=== PATIENT | female | born 1965 | race Caucasian/White ===

== ENCOUNTER → 2017-06-10 | Outpatient (CLI) | payer OTHER ==
--- NOTE | 2017-06-10 14:01 | WOMENS IMAGING REPORT ---
EXAM DESCRIPTION: BILAT SCREENING MAMMO W/CAD COMPLETED DATE/TIME: 06/10/2017 11:39 am REASON FOR STUDY: ROUTINE SCREENING; Z12.31 Z12.31 ENCNTR SCREEN MAMMOGRAM FOR MALIGNANT NEOPLASM O F ERNESTINA COMPARISON: 2013, 2015 TECHNIQUE: Standard craniocaudal and mediolateral oblique views of each breast recorded using Spreecasta l acquisition. LIMITATIONS: None. FINDINGS: RIGHT BREAST MASSES: No suspicious masses. CALCIFICATIONS: No new or suspicious calcifications. ARCHITECTURAL DISTORTION: None. DEVELOPING DENSITY: 6 mm developing density seen on the MLO view upper breast 9 cm from the nipple, l ikely a lymph node ASYMMETRY: None noted. OTHER: No other significant findings. LEFT BREAST MASSES: No suspicious masses. CALCIFICATIONS: No new or suspicious calcifications. ARCHITECTURAL DISTORTION: None. DEVELOPING DENSITY: None. ASYMMETRY: None noted. OTHER: No other significant findings. Read with the assistance of CAD. .[facility] - R2 Cenova Version 1.3 .[facility] Imaging - R2 Cenova Version 1.3 .[facility] Imaging - R2 Cenova Version 2.4 .[facility] - R2 Cenova Version 2.4 .[facility] - R2 [employer] Version 9.2 IMPRESSION: Developing density in the right breast BREAST DENSITY: b. There are scattered areas of fibroglandular density. BIRAD: 0 Incomplete: Needs Additional Imaging Evaluation and/or prior Mammograms for Comparison. RECOMMENDATION: RECOMMENDED FOLLOW-UP: Magnification spot compression and ultrasound. The patient will be contacted for additional imaging. COMMENT: The patient has been notified of the results by letter per SA requirements. Additional no tification policies are in place for contacting patient with suspicious or incomplete findings. Quality ID #225: The [employer] [place] [employer] [employer] recommends an annual screening mammogram for women aged 40 years or over. This facility utilizes a reminder system to ensure that all patients receive reminder letters, and/or direct phone calls for appointments. This includes reminders for routine scr eening mammograms, diagnostic mammograms, or other Breast Imaging Interventions when appropriate. Th is patient will be placed in the appropriate reminder system. The [employer] [place] [employer] (ACR) has developed recommendations for screening MRI of the breast s in certain patient populations, to be used in conjunction with mammography. Breast MRI surveillanc e may be appropriate for women with more than 20% lifetime risk of developing breast cancer as deter mined by genetic testing, significant family history of the disease, or history of mantle radiation f or Hodgkins Disease. ACR Practice Guidelines 2008. TECHNICAL DOCUMENTATION: FINDING NUMBER: (1) ASSESSMENT: (1) JOB ID: [id number] [employer]- All Rights Reserved
== END ==
LOC: WI 08:12
PROVIDERS: ATTEND Physician Assistant
DX: Z12.31 Encounter for screening mammogram for malignant neoplasm of breast (principal)
CPT/HCPCS: 77067; G0202

== ENCOUNTER → 2017-07-01 | Outpatient (CLI) | payer OTHER ==
--- NOTE | 2017-07-01 16:30 | WOMENS IMAGING REPORT ---
EXAM DESCRIPTION: RIGHT DIAGNOSTIC MAMMO W/CAD; U/S BREAST UNILAT LIMITED COMPLETED DATE/TIME: 07/01/2017 11:02 am; 07/01/2017 12:34 pm REASON FOR STUDY: R DIAG; LUMP N63; RT BREAST DENSITY N63 UNSPECIFIED LUMP IN BREAST COMPARISON: 06/10/2017 and 01/26/2016. TECHNIQUE: Additional images include a true lateral view, exaggerated CCL view, and spot compression MLO view. LIMITATIONS: None. FINDINGS: BREAST: right MASSES: Circumscribed mass in the axillary tail region. This has smooth borders and fatty hilum. CALCIFICATIONS: No new or suspicious calcifications. ARCHITECTURAL DISTORTION: None. DEVELOPING DENSITY: None. ASYMMETRY: None noted. OTHER: No other significant findings. BREAST ULTRASOUND: TECHNIQUE: Static and dynamic grayscale images acquired of the right breast in the specific areas of clinical/mammographic concern. Selected color Doppler images recorded. ELASTOGRAPHY PERFORMED: No. LIMITATIONS: None. FINDINGS: MASS: Circumscribed oval lymph node in the axillary tail measuring 6 x 7 x 10 mm. This has smooth ma rgins with central fatty hilum. No suspicious cortical thickening. Normal glandular tissue. ELASTOGRAPHY CHARACTERISTICS: Not applicable. OTHER: No other significant finding. IMPRESSION: Small mass in the axillary tail region of the right breast has characteristics of an inc idental lymph node. No worrisome findings. BREAST DENSITY: b. There are scattered areas of fibroglandular density. BIRAD: 2 Benign findings. RECOMMENDATION: RECOMMENDED FOLLOW UP: Birads 1 or 2: The patient should resume routine screening . SPECIFIC INTERVENTION/IMAGING/CONSULTATION RECOMMENDED:No additional intervention/ imaging/consultati on needed at this time. COMMUNICATION:The imaging findings were not discussed with the patient. Her referring provider has be en notified of the findings. COMMENT: The patient has been notified of the results by letter per SA requirements. Additional no tification policies are in place for contacting patient with suspicious or incomplete findings. Quality ID #225: The [employer] recommends an annual screening mammogram for women aged 40 years or over. This facility utilizes a reminder system to ensure that all patients receive reminder letters, and/or direct phone calls for appointments. This includes reminders for routine scr eening mammograms, diagnostic mammograms, or other Breast Imaging Interventions when appropriate. Th is patient will be placed in the appropriate reminder system. The [employer] [employer] (ACR) has developed recommendations for screening MRI of the breast s in certain patient populations, to be used in conjunction with mammography. Breast MRI surveillanc e may be appropriate for women with more than 20% lifetime risk of developing breast cancer as deter mined by genetic testing, significant family history of the disease, or history of mantle radiation f or Hodgkins Disease. ACR Practice Guidelines 2008. TECHNICAL DOCUMENTATION: FINDING NUMBER: (1) ASSESSMENT: (1) JOB ID: [id number] [employer]- All Rights Reserved
== END ==
LOC: WI 10:46
PROVIDERS: ATTEND Physician Assistant
DX: N63 Unspecified lump in breast (principal)
CPT/HCPCS: 76642; G0206

== ENCOUNTER 2019-06-11 12:28 | Emergency (ER) | payer MEDICARE, OTHER ==
[2019-06-11 12:53] VITALS: BP 118/42
--- NOTE | 2019-06-11 13:45 | ER Document Report ---
ED Medical Screen (RME) - General Chief Complaint: Fall Stated Complaint: FALL/ARM PAIN Time Seen by Provider: 06/11/19 13:41 Primary Care Provider: GIANCARLO SAENZ PA-C [Primary Care Provider] - Follow up as needed Mode of Arrival: Ambulatory Information source: Patient Notes: 54-year-old female presented to ED for complaint of fall yesterday and also a month ago both times unsure why she fell. Today she has a pain in her left elbow and forearm. Patient is alert oriented respirations regular and unlabored speaking in full sentences walks with even steady gait. She states she has a history of multiple sclerosis fractured in the left arm gallbladder removal bladder sling orthopedic surgeries bilateral tubal ligation and reversal and also. I have greeted and performed a rapid initial assessment of this patient. A comprehensive ED assessment and evaluation of the patient, analysis of test results and completion of medical decision making process will be conducted by an additional ED providers. Dictation of this chart was performed using voice recognition software; therefore, there may be some unintended grammatical errors. TRAVEL OUTSIDE OF THE [place] IN LAST 30 DAYS: No - Related Data Allergies/Adverse Reactions: peanut [Peanut] Allergy (Unknown, Verified 06/11/19 12:47) sumatriptan [From Imitrex] Allergy (Unknown, Verified 06/11/19 12:47) sumatriptan succinate [From Imitrex] Allergy (Unknown, Verified 06/11/19 12:47) lactose [Lactose] Adverse Reaction (Unknown, Verified 06/11/19 12:47) Past Medical History - Social History Frequency of alcohol use: None Drug Abuse: None - Past Medical History Cardiac Medical History: Reports: Hx Hypercholesterolemia Denies: Hx Coronary Artery Disease, Hx Heart Attack, Hx Hypertension Pulmonary Medical History: Reports: Hx Pneumonia - hx of Denies: Hx Asthma, Hx Bronchitis, Hx COPD Neurological Medical History: Denies: Hx Cerebrovascular Accident, Hx Seizures Renal/ Medical History: Denies: Hx Peritoneal Dialysis Musculoskeltal Medical History: Reports Hx Arthritis - ms Psychiatric Medical History: Reports: Hx Depression Past Surgical History: Reports: Hx Cholecystectomy, Hx Genitourinary Surgery - bladder sling, Hx Orthopedic Surgery - internal fixation to LFA, jaw, Hx Tonsillectomy, Hx Tubal Ligation. Denies: Hx Hysterectomy - Immunizations Hx Diphtheria, Pertussis, Tetanus Vaccination: Yes Physical Exam - Vital signs Vitals: Temp Pulse Resp BP Pulse Ox 97.8 F 81 18 118/42 L 94 06/11/19 12:52 06/11/19 12:52 06/11/19 12:52 06/11/19 12:52 06/11/19 12:52 Course - Vital Signs Vital signs: Temp Pulse Resp BP Pulse Ox 97.8 F 81 18 118/42 L 94 06/11/19 12:52 06/11/19 12:52 06/11/19 12:52 06/11/19 12:52 06/11/19 12:52 Doctor's Discharge - Discharge Referrals: GIANCARLO SAENZ PA-C [Primary Care Provider] - Follow up as needed
[2019-06-11 14:13] LABS: ABSOLUTE BASOPHILS # (AUTO) 0.1 10^3/uL (0.0-0.2); ABSOLUTE EOSINOPHILS # (AUTO) 0.2 10^3/uL (0.0-0.6); ABSOLUTE LYMPHOCYTES (AUTO) 2.4 10^3/uL (0.5-4.7); ABSOLUTE MONOCYTES (AUTO) 0.5 10^3/uL (0.1-1.4); ABSOLUTE NEUT (AUTO) 4.9 10^3/uL (1.7-8.2); BASOPHILS % (AUTO) 0.9 % (0-2); EOSINOPHILS % (AUTO) 2.7 % (0-6); HEMATOCRIT 44.3 % (36.0-47.0); HEMOGLOBIN 14.6 g/dL (12.0-15.5); LYMPHOCYTES % (AUTO) 29.9 % (13-45); MEAN CORPUSCULAR HEMOGLOBIN 27.5 pg (27.0-33.4); MEAN CORPUSCULAR HGB CONC 33.1 g/dL (32.0-36.0); MEAN CORPUSCULAR VOLUME 83 fl (80-97); MONOCYTES % (AUTO) 5.6 % (3-13); PLATELET COUNT 217 10^3/uL (150-450); RED BLOOD COUNT 5.32 10^6/uL (3.72-5.28); RED CELL DISTRIBUTION WIDTH 14.1 % (11.5-14.0); SEGMENTED NEUTROPHILS % (AUTO) 60.9 % (42-78); TOTAL CELLS COUNTED % (AUTO) 100 %
[2019-06-11 14:15] LABS: APPEARANCE,URINE CLEAR; BILIRUBIN,URINE NEGATIVE (NEGATIVE); COLOR,URINE YELLOW; GLUCOSE, URINE NEGATIVE (NEGATIVE); KETONES,URINE NEGATIVE (NEGATIVE); LEUKOCYTE ESTERASE,URINE NEGATIVE (NEGATIVE); NITRITE,URINE NEGATIVE (NEGATIVE); PROTEIN,URINE NEGATIVE (NEGATIVE); URINE SPECIFIC GRAVITY 1.009; UROBILINOGEN,URINE NEGATIVE mg/dL (<2.0)
--- NOTE | 2019-06-11 14:29 | RADIOLOGY REPORT (SQ) ---
EXAM DESCRIPTION: ELBOW LEFT OVER 2 VIEWS COMPLETED DATE/TIME: 06/11/2019 2:17 pm REASON FOR STUDY: Fall pain COMPARISON: None. NUMBER OF VIEWS: Four views. TECHNIQUE: AP, lateral, and both oblique radiographic images acquired of the left elbow. LIMITATIONS: None. FINDINGS: MINERALIZATION: Normal. BONES: No acute fracture or dislocation. No worrisome bone lesions. JOINT: No effusion. SOFT TISSUES: No soft tissue swelling. No foreign body. OTHER: No other significant finding. IMPRESSION: NEGATIVE STUDY OF THE LEFT ELBOW. NO RADIOGRAPHIC EVIDENCE OF ACUTE INJURY. TECHNICAL DOCUMENTATION: JOB ID: [id number] [employer]- All Rights Reserved Reading location - IP/workstation name: [email or web address]
--- NOTE | 2019-06-11 14:31 | RADIOLOGY REPORT (SQ) ---
EXAM DESCRIPTION: FOREARM LEFT COMPLETED DATE/TIME: 06/11/2019 2:17 pm REASON FOR STUDY: Fall pain COMPARISON: None. NUMBER OF VIEWS: Two views. TECHNIQUE: Two radiographic images acquired of the left forearm, including elbow and wrist in at [facility] one projection. LIMITATIONS: None. FINDINGS: MINERALIZATION: Normal. BONES: Postsurgical and posttraumatic changes in the distal radius. No acute fracture or dislocation . SOFT TISSUES: No obvious swelling or foreign body. OTHER: No other significant finding. IMPRESSION: Postsurgical changes in the distal radius with internal fixation of a distal radius frac ture. TECHNICAL DOCUMENTATION: JOB ID: [id number] [employer]- All Rights Reserved Reading location - IP/workstation name: [email or web address]
[2019-06-11 14:33] LABS: ALANINE AMINOTRANSFERASE 18 U/L (9-52); ALBUMIN 4.7 g/dL (3.5-5.0); ALKALINE PHOSPHATASE 76 U/L (38-126); ANION GAP 5 (5-19); ASPARTATE AMINO TRANSFERASE 28 U/L (14-36); BILIRUBIN,DIRECT 0.3 mg/dL (0.0-0.4); BILIRUBIN,TOTAL 0.5 mg/dL (0.2-1.3); BLOOD UREA NITROGEN 16 mg/dL (7-20); CALCIUM 9.9 mg/dL (8.4-10.2); CARBON DIOXIDE 28 mmol/L (22-30); CHLORIDE 105 mmol/L (98-107); CREATINE KINASE 37 U/L (30-135); GLUCOSE 86 mg/dL (75-110); POTASSIUM 4.6 mmol/L (3.6-5.0); SODIUM 138.2 mmol/L (137-145); TOTAL PROTEIN 7.7 g/dL (6.3-8.2)
[2019-06-11 14:43] LABS: CREATINE KINASE MB 0.25 ng/mL (<4.55); TROPONIN I < 0.012 ng/mL
--- NOTE | 2019-06-11 15:35 | ER Document Report ---
ED General - General Chief Complaint: Fall Stated Complaint: FALL/ARM PAIN Time Seen by Provider: 06/11/19 13:41 Primary Care Provider: LEANDRO QIU MD [ASSOCIATE] - Follow up as needed GIANCARLO SAENZ PA-C [Primary Care Provider] - Follow up as needed Mode of Arrival: Ambulatory Notes: RME Provider note: 54-year-old female presented to ED for complaint of fall yesterday and also a month ago both times unsure why she fell. Today she has a pain in her left elbow and forearm. Patient is alert oriented respirations regular and unlabored speaking in full sentences walks with even steady gait. She states she has a history of multiple sclerosis fractured in the left arm. MY HPI: Patient states at no time she felt lightheaded, dizzy, weak, had a headache, chest pain, shortness of breath. Patient states approximately a month ago when she had a fall she was seen at the [facility]. States she was then diagnosed with spinal stenosis and "possible slipped disc states she has an appointment with" in her neck. Neurology and neurosurgery coming up next week. Patient states she does not believe that she tripped or fell just states she was putting chemicals in the pool when she fell forward landing on her left forearm and left knee yesterday evening. Patient states she continued with pain today in her left forearm and left elbow which is why she presents to the emergency room. Patient continues to deny any lightheadedness, dizziness, weakness, headache, chest pain, shortness of breath, nausea, vomiting, diarrhea. Patient's only generalized complaint is pain in her left elbow and left distal forearm. Patient states she took naproxen prior to arrival to the emergency room. P atient is refusing any pain medication in the emergency room. TRAVEL OUTSIDE OF THE [place] IN LAST 30 DAYS: No - Related Data Allergies/Adverse Reactions: peanut [Peanut] Allergy (Unknown, Verified 06/11/19 12:47) sumatriptan [From Imitrex] Allergy (Unknown, Verified 06/11/19 12:47) sumatriptan succinate [From Imitrex] Allergy (Unknown, Verified 06/11/19 12:47) lactose [Lactose] Adverse Reaction (Unknown, Verified 06/11/19 12:47) Past Medical History - General Information source: Patient - Social History Smoking Status: Current Every Day Smoker Frequency of alcohol use: None Drug Abuse: None Family History: Reviewed & Not Pertinent Patient has suicidal ideation: No Patient has homicidal ideation: No - Past Medical History Cardiac Medical History: Reports: Hx Hypercholesterolemia Denies: Hx Coronary Artery Disease, Hx Heart Attack, Hx Hypertension Pulmonary Medical History: Reports: Hx Pneumonia - hx of Denies: Hx Asthma, Hx Bronchitis, Hx COPD Neurological Medical History: Denies: Hx Cerebrovascular Accident, Hx Seizures Renal/ Medical History: Denies: Hx Peritoneal Dialysis Musculoskeletal Medical History: Reports Hx Arthritis - ms Psychiatric Medical History: Reports: Hx Depression Past Surgical History: Reports: Hx Cholecystectomy, Hx Genitourinary Surgery - bladder sling, Hx Orthopedic Surgery - internal fixation to LFA, jaw, Hx Tonsillectomy, Hx Tubal Ligation. Denies: Hx Hysterectomy - Immunizations Hx Diphtheria, Pertussis, Tetanus Vaccination: Yes Review of Systems - Review of Systems Constitutional: See HPI EENT: No symptoms reported Cardiovascular: See HPI Respiratory: See HPI Gastrointestinal: See HPI Genitourinary: No symptoms reported Female Genitourinary: No symptoms reported Musculoskeletal: See HPI Skin: No symptoms reported Hematologic/Lymphatic: No symptoms reported Neurological/Psychological: See HPI Physical Exam - Vital signs Vitals: Temp Pulse Resp BP Pulse Ox 97.8 F 81 18 118/42 L 94 06/11/19 12:52 06/11/19 12:52 06/11/19 12:52 06/11/19 12:52 06/11/19 12:52 - Notes Notes: GENERAL: Alert, interacts well. No acute distress. HEAD: Normocephalic, atraumatic. EYES: Pupils equal, round, and reactive to light. Extraocular movements intact. ENT: Oral mucosa moist, tongue midline. NECK: Full range of motion. Supple. Trachea midline. LUNGS: Clear to auscultation bilaterally, no wheezes, rales, or rhonchi. No respiratory distress. HEART: Regular rate and rhythm. No murmur ABDOMEN: Soft, non-tender. Non-distended. Bowel sounds present in all 4 quadrants. EXTREMITIES: Moves all 4 extremities spontaneously. No edema, normal radial and dorsalis pedis pulses bilaterally. No cyanosis. 5 out of 5 strength all 4 extremities. Generalized pain upon palpation left medial and lateral epicondyles. Pain upon palpation distal anterior left forearm. No obvious erythema, ecchymosis, swelling noted left upper extremity. Radial, ulnar, medial nerves appear intact. BACK: no cervical, thoracic, lumbar midline tenderness. No saddle anesthesia, normal distal neurovascular exam. NEUROLOGICAL: Alert and oriented x3. Normal speech. cranial nerves II through XII grossly intact PSYCH: Normal affect, normal mood. SKIN: Warm, dry, normal turgor. No rashes or lesions noted. Course - Re-evaluation Re-evalutation: Patient is very nonchalant about the reason for which she fell. Patient is smiling and laughing upon HPI. States "I have MS and there is nothing upstairs anyway" in reference to her brain. Patient states she has been seen in [place] emergency department and also by her primary care provider for "falling all the time." Patient states she has an appointment with neurology this coming week. According to patient she initially wanted to refuse blood work. States "I just needed x-rays of my left arm." Elbow X-Ray 06/11/19 13:41 IMPRESSION: NEGATIVE STUDY OF THE LEFT ELBOW. NO RADIOGRAPHIC EVIDENCE OF ACUTE INJURY. Forearm X-Ray 06/11/19 13:41 IMPRESSION: Postsurgical changes in the distal radius with internal fixation of a distal radius fracture. Patient's x-rays revealed no acute fractures. Patient is wishing to decline any sort of immobilization devices of the left upper extremity. She is also dec lining any pain management in the emergency room. States she has naproxen at home and will take that. Discussed use of ice and following up with orthopedics. Patient voices understanding, stable for discharge. At this time will discharge with return precautions and follow-up recommendations. Verbal discharge instructions given a the bedside and opportunity for questions given. Medication warnings reviewed. Patient is in agreement with this plan and has verbalized understanding of return precautions and the need for primary care follow-up in the next 24-72 hours. This medical record was dictated with voice recognizing software. There may be grammatical, syntax errors that are unintended. 06/11/19 15:38 EKG shows sinus rhythm rate of 67, QTC 423, no ST segment elevations or depressions noted. - Vital Signs Vital signs: Temp Pulse Resp BP Pulse Ox 97.8 F 81 18 118/42 L 94 06/11/19 12:52 06/11/19 12:52 06/11/19 12:52 06/11/19 12:52 06/11/19 12:52 - Laboratory Result Diagrams: 06/11/19 14:00 06/11/19 14:00 Laboratory results interpreted by me: 06/11/19 14:00 RBC 5.32 H RDW 14.1 H Discharge - Discharge Clinical Impression: Left elbow pain, Left arm pain Condition: Stable Disposition: HOME, SELF-CARE Additional Instructions: As we discussed you have been seen and treated in the emergency department after an injury to your left upper extremity. X-rays of your left elbow and the 2 bones in your left forearm reveal no signs of acute fractures. Patient should continue to take [id number] analgesics and apply ice as needed. Please also follow-up with your primary provider or orthopedics as needed. Phone numbers will be provided in this packet. Please also return to the emergency room for any other concerns. Referrals: GIANCARLO SAENZ PA-C [Primary Care Provider] - Follow up as needed LEANDRO QIU MD [ASSOCIATE] - Follow up as needed
--- NOTE | 2019-06-11 20:06 | EKG REPORT ---
SEVERITY:- NORMAL ECG - SINUS RHYTHM : Confirmed by: Vicky Up MD 11-Jun-2019 20:05:09
== END 2019-06-11 15:59 | disposition home or self-care (01) ==
LOC: ER 12:28
DX: M25.522 Pain in left elbow (principal); M79.602 Pain in left arm; M79.632 Pain in left forearm; W19.XXXA Unspecified fall, initial encounter; F17.200 Nicotine dependence, unspecified, uncomplicated
CPT/HCPCS: 36415; 80053; 81001; 82550; 82553; 84484; 84703; 85025; 93005; 93010; 99284

== ENCOUNTER → 2019-09-25 | Outpatient (CLI) | payer MEDICARE, OTHER ==
--- NOTE | 2019-09-25 13:16 | WOMENS IMAGING REPORT ---
EXAM DESCRIPTION: 3D SCREENING MAMMO BILAT COMPLETED DATE/TIME: 09/25/2019 10:23 am REASON FOR STUDY: Z12.31 SCREENING MAMMO Z12.31 ENCNTR SCREEN MAMMOGRAM FOR MALIGNANT NEOPLASM OF B RE COMPARISON: Multiple since 2013 EXAM PARAMETERS: Views: Standard craniocaudal and mediolateral oblique views of each breast recorded using digital acquisition and breast tomosynthesis. Read with the assistance of CAD. .[facility] - [employer] Version 9.2 LIMITATIONS: None. FINDINGS: No suspicious masses, suspicious calcifications or architectural distortion. No areas of c oncern. IMPRESSION: NEGATIVE MAMMOGRAM. BIRADS 1. BREAST DENSITY: b. There are scattered areas of fibroglandular density. BIRAD: ASSESSMENT: 1 NEGATIVE RECOMMENDATION: ROUTINE SCREENING Please continue yearly bilateral screening mammography/tomosynthesis in September 2020 COMMENT: The patient has been notified of the results by letter per SA requirements. Additional no tification policies are in place for contacting patient with suspicious or incomplete findings. Quality ID #225: The [employer] recommends an annual screening mammogram for women aged 40 years or over. This facility utilizes a reminder system to ensure that all patients receive reminder letters, and/or direct phone calls for appointments. This includes reminders for routine scr eening mammograms, diagnostic mammograms, or other Breast Imaging Interventions when appropriate. Th is patient will be placed in the appropriate reminder system. TECHNICAL DOCUMENTATION: FINDING NUMBER: (1) ASSESSMENT: (1) JOB ID: [id number] [employer]- All Rights Reserved Reading location - IP/workstation name: [email or web address]
== END ==
LOC: WI 10:05
PROVIDERS: ATTEND Physician Assistant
DX: Z12.31 Encounter for screening mammogram for malignant neoplasm of breast (principal)
CPT/HCPCS: 77063; 77067

== ENCOUNTER 2020-10-10 22:26 | Emergency (ER) | payer MEDICARE, OTHER ==
[2020-10-10] MEDS ORDERED: DIAZEPAM 2 MG TABLET PO ONE (23:16)
[2020-10-10] MEDS ORDERED: KETOROLAC TROMETHAMINE 60 MG/2 ML SDV IM ONE (23:16)
--- NOTE | 2020-10-10 23:16 | ER Document Report ---
ED General - General Chief Complaint: Back Pain Stated Complaint: BACK PAIN,RIGHT LEG PAIN WITH NUMBNESS Time Seen by Provider: 10/10/20 22:56 Primary Care Provider: GIANCARLO SAENZ PA-C [Primary Care Provider] - Follow up in 3-5 days TRAVEL OUTSIDE OF THE [place] IN LAST 30 DAYS: No - HPI Notes: 55-year-old female with past medical history of sciatica, MS, PCM, COPD to the emergency department with complaints of low back pain that radiates down the back of the right thigh 4 days. She states she has a history of sciatica but it usually affects the left side. She states she is gotten several steroid injections with her pain management physician Dr. Spence. She states she sees Dr. Duncan for her MS. She denies any fevers or chills. She states it hurts when she extends the leg and when she lifts it. Also gives her a lot of pain when she bends forward in her back. She states she has been having to crawl around at home. She denies any bladder or bowel incontinence, saddle paresthesia, fevers, IV drug abuse. She states that she takes baclofen, diclofenac, gabapentin daily for her pain control. She is not on any narcotic pain medicine. Denies any falls or blunt trauma. - Related Data Allergies/Adverse Reactions: peanut [Peanut] Allergy (Unknown, Verified 06/11/19 12:47) sumatriptan [From Imitrex] Allergy (Unknown, Verified 06/11/19 12:47) sumatriptan succinate [From Imitrex] Allergy (Unknown, Verified 06/11/19 12:47) lactose [Lactose] Adverse Reaction (Unknown, Verified 06/11/19 12:47) Past Medical History - General Information source: Patient - Social History Smoking Status: Current Every Day Smoker Frequency of alcohol use: Occasional Drug Abuse: None Family History: Reviewed & Not Pertinent - Past Medical History Cardiac Medical History: Reports: Hx Hypercholesterolemia Denies: Hx Coronary Artery Disease, Hx Heart Attack, Hx Hypertension Pulmonary Medical History: Reports: Hx Pneumonia - hx of Denies: Hx Asthma, Hx Bronchitis, Hx COPD Neurological Medical History: Denies: Hx Cerebrovascular Accident, Hx Seizures Renal/ Medical History: Denies: Hx Peritoneal Dialysis Musculoskeletal Medical History: Reports Hx Arthritis - ms Psychiatric Medical History: Reports: Hx Depression Past Surgical History: Reports: Hx Cholecystectomy, Hx Genitourinary Surgery - bladder sling, Hx Orthopedic Surgery - internal fixation to LFA, jaw, Hx Tonsillectomy, Hx Tubal Ligation. Denies: Hx Hysterectomy - Immunizations Hx Diphtheria, Pertussis, Tetanus Vaccination: Yes Review of Systems - Review of Systems Constitutional: denies: Chills, Fever EENT: No symptoms reported Cardiovascular: denies: Chest pain, Palpitations, Heart racing, Orthopnea, Dyspnea, Syncope, Dizziness, Lightheaded Respiratory: denies: Cough, Short of breath Gastrointestinal: denies: Abdominal pain, Diarrhea, Nausea, Vomiting Musculoskeletal: See HPI, Back pain Skin: No symptoms reported Hematologic/Lymphatic: No symptoms reported Neurological/Psychological: No symptoms reported -: Yes All other systems reviewed and negative Physical Exam - Vital signs Vitals: Temp Pulse BP Pulse Ox 97.4 F 54 L 107/67 95 10/11/20 03:43 10/11/20 03:43 10/11/20 03:43 10/11/20 03:43 Interpretation: Normal - General General appearance: Appears well, Alert In distress: Moderate Notes: Moderate pain distress, laying flat on the bed with her legs bent - HEENT Head: Normocephalic, Atraumatic Eyes: Normal Pupils: PERRL Neck: Normal, Supple - Respiratory Respiratory status: No respiratory distress Chest status: Nontender Breath sounds: Normal. No: Rales, Rhonchi, Wheezing Chest palpation: Normal - Cardiovascular Rhythm: Regular Heart sounds: Normal auscultation Murmur: No - Abdominal Inspection: Normal Distension: No distension Bowel sounds: Normal Tenderness: Nontender. No: Tender, McBurney's point, Prescott's sign, Guarding, Rebound Organomegaly: No organomegaly - Back Back: Tender - Mild tenderness to palpation to the midline lumbar spine. There is tenderness to palpation to the posterior right thigh. She has positive right straight leg raise. 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 Awaiting CT. 10/11/20 02:57 Impression: Lumbar go with sciatica. Degenerative disc disease. Noted CT reading. Patient has had good pain relief with shot of Toradol and 2 mg of Valium. Will send home with Toradol for home use. We will have her hold her diet for neck. We will have her follow-up with her primary care physician. She is to return if any worsening symptoms. She has no symptoms of emergent back issue. She has no bladder bowel incontinence, urinary retention, saddle paresthesia, fevers. Patient agrees with the plan. 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 You may take Toradol for pain. Continue your At Home muscle relaxants. Return if worsening symptoms. Prescriptions: Ketorolac Tromethamine [Toradol 10 mg Tablet] 10 mg PO Q8HP PRN #12 tablet PRN Reason: Referrals: GIANCARLO SAENZ PA-C [Primary Care Provider] - Follow up in 3-5 days
--- NOTE | 2020-10-11 02:25 | RADIOLOGY REPORT (SQ) ---
EXAM DESCRIPTION: CT LUMBAR SPINE WITHOUT IV CONTRAST COMPLETED DATE/TME: 10/11/2020 01:50 CLINICAL HISTORY: low back pain with radiculopathy COMPARISON: None available TECHNIQUE: Axial CT of the lumbar spine obtained without contrast. FINDINGS: Alignment of the lumbar spine is maintained without evidence of subluxation. No fracture identified. Vertebral body height preserved. Prevertebral soft tissues are unremarkable. L1/2: Intervertebral disc height preserved. No central canal nor neural foraminal narrowing. L2/3: Intervertebral disc height preserved. No central canal nor neural foraminal narrowing. L3/4: Intervertebral disc height preserved. No central canal nor neural foraminal narrowing. L4/5: Minimal posterior disc bulge. Intervertebral disc height preserved. No definite central canal nor neural foraminal narrowing. L5/S1: Severe bilateral facet arthropathy. 5 mm anterolisthesis of L5 over S1. Moderate loss of intervertebral disc height with endplate spondylosis. Moderate bilateral neural foraminal narrowing. No definite central canal narrowing. Aortoiliac atherosclerosis. IMPRESSION: 1. No acute fracture or subluxation of the lumbar spine. 2. Degenerative change of the lumbar spine, most severe at L5/S1. Bilateral neural foraminal narrowing at this level. More detailed evaluation with MRI of the lumbar spine may be helpful. This exam was performed according to our departmental dose-optimization program, which includes automated exposure control, adjustment of the mA and/or kV according to patient size and/or use of iterative reconstruction technique.
[2020-10-11 03:45] VITALS: BP 107/67
== END 2020-10-11 03:53 | disposition home or self-care (01) ==
LOC: ER 22:26
DX: M51.16 Intervertebral disc disorders with radiculopathy, lumbar region (principal); F17.200 Nicotine dependence, unspecified, uncomplicated; Z79.899 Other long term (current) drug therapy; Z91.010 Allergy to peanuts; Z88.6 Allergy status to analgesic agent
CPT/HCPCS: 99285; 96372; 72131; A9270; J1885; J3490

== ENCOUNTER → 2020-12-20 | Outpatient (CLI) | payer MEDICARE, OTHER ==
--- NOTE | 2020-12-20 10:50 | WOMENS IMAGING REPORT ---
EXAM DESCRIPTION: 3D SCREENING MAMMO BILAT IMAGES COMPLETED DATE/TIME: 12/20/2020 10:10 am REASON FOR STUDY: Z12.31 ENCOUNTER FOR SCREENING MAMMOGRAM FOR MALIGNANT NEOPLASM OF BREAST Z12.31 ENCNTR SCREEN MAMMOGRAM FOR MALIGNANT NEOPLASM OF [place]ST[place] COMPARISON: Priors dating back to 2013 EXAM PARAMETERS: Views: Standard craniocaudal and mediolateral oblique views of each breast recorded using digital acquisition and breast tomosynthesis. Read with the assistance of CAD. .[facility] - [employer] Passenger Relations Representative Version 9.2 LIMITATIONS: None. FINDINGS: No suspicious masses, suspicious calcifications or architectural distortion. No areas of c oncern. IMPRESSION: NEGATIVE MAMMOGRAM. BIRADS 1. BREAST DENSITY: b. There are scattered areas of fibroglandular density. BIRAD: ASSESSMENT: 1 NEGATIVE RECOMMENDATION: ROUTINE SCREENING COMMENT: The patient has been notified of the results by letter per MQSA requirements. Additional no tification policies are in place for contacting patient with suspicious or incomplete findings. Quality ID #[id number]: The [employer] recommends an annual screening mammogram for women aged 40 years or over. This facility utilizes a reminder system to ensure that all patients receive reminder letters, and/or direct phone calls for appointments. This includes reminders for routine scr eening mammograms, diagnostic mammograms, or other Breast Imaging Interventions when appropriate. Th is patient will be placed in the appropriate reminder system. TECHNICAL DOCUMENTATION: FINDING NUMBER: (1) ASSESSMENT: (1) JOB ID: [id number] 2010 [employer]- All Rights Reserved Reading location - IP/workstation name: [email or web address]
== END ==
LOC: WI 09:41
PROVIDERS: ATTEND Physician Assistant
DX: Z12.31 Encounter for screening mammogram for malignant neoplasm of breast (principal)
CPT/HCPCS: 77063; 77067